=== PATIENT | female | born 1960 ===

== ENCOUNTER 2017-12-21 07:12 | Observation (INO) | payer OTHER ==
--- NOTE | 2017-12-21 07:20 | ED PDOC ---
HPI:STROKE - Time Time: 07:18 - Historian Historian: EMS - Chief Complaint Chief Complaint: Slurred speech - Onset Date: 12/21/17 Time: 05:40 Onset: Hours (1.5) - Timing Timing: Currently Symptomatic - Location Location: Speech - Radiation Radiation: None - Severity of pain Maximum severity:: Moderate Severity Current: Moderate - Exacerbated by Exacerbated by:: Nothing - Relieved by Relieved by:: Nothing - TPA Positive for Contraindication: No NIHSS Stroke Scale - How Severe is the Stroke Level of Consciousness: 0=Alert LOC to Questions: 2=Neither correct LOC to commands: 0=Obeys both correctly Best Gaze: 0=Normal Visual: 0=No visual loss Facial: 0=Normal Motor Arm - Left: 0=No drift Motor Arm - Right: 0=No drift Motor Leg - Left: 0=No drift Motor Leg - Right: 0=No drift Limb Ataxia: 0=Absent Sensory: 0=Normal Best Language: 2=Severe aphasia Dysarthia: 2=Severe, near unintelligible or worse Extinction & Inattention (Neglect): 0=Normal, no object Score: 6 NIHSS Stroke Scale 2 - How Severe is the Stroke Level of Consciousness: 0=Alert LOC to Questions: 0=Both comments correct LOC to commands: 0=Obeys both correctly Best Gaze: 0=Normal Visual: 0=No visual loss Facial: 0=Normal Motor Arm - Left: 0=No drift Motor Arm - Right: 0=No drift Motor Leg - Left: 0=No drift Motor Leg - Right: 0=No drift Limb Ataxia: 0=Absent Sensory: 0=Normal Best Language: 0=No aphasia Dysarthia: 0=Normal articulation Extinction & Inattention (Neglect): 0=Normal, no object Score: 0 rTPA Inclusion/Exclusion - Refusal of Treatment Patient Refused Treatment: No - Inclusion Criteria for Altepase Patient is 18 years or Older: Yes The Clinical Diagnosis of Ischemic Stroke That is Causing a Potentially Disabling Neurological Deficit: Yes Time of Onset is Well Established to be Less Than 270 Minute Before Treatment Would Begin: Yes Risk/Benefit Discussed With Patient/Family Member Present: Yes - Exclusion Criteria for Altepase Uncontrolled Hypertension at Time of Treatment (Systolic BP above 185 or Diastolic BP above 110 mmHg): No Past Medical History - Medical History PMH: Anxiety, Cardia Arrhythmia, Emphysema, HTN, Hyperlipidemia, Seizures, TIA - Family History Family History: States: Unknown Family Hx - Home Medications Home Medications: Ambulatory Orders Medication Instructions Recorded Albuterol HFA [Ventolin HFA 90 2 puff INH Q4 PRN 12/16/15 mcg/actuation (8 g)] Aspirin [Ecotrin] 81 mg PO DAILY 12/16/15 Atorvastatin [Lipitor] 20 mg PO HS 12/16/15 Budesonide/Formoterol Fumarate 2 puff INH BID 12/16/15 [Symbicort 80-4.5 Mcg Inhaler] Clopidogrel [Plavix] 75 mg PO DAILY 12/16/15 Escitalopram [Lexapro] 10 mg PO DAILY 12/16/15 Losartan/Hydrochlorothiazide 1 tab PO DAILY 12/16/15 [Losartan-Hctz 50-12.5 mg Tab] Naproxen 500 mg PO BID PRN 12/16/15 amLODIPine [Norvasc] 10 mg PO DAILY 12/16/15 Fenofibrate [Tricor] 145 mg PO DAILY #30 tab 12/17/15 - Allergies Allergies/Adverse Reactions: Allergies Allergy/AdvReac Type Severity Reaction Status Date / Time atorvastatin calcium Allergy ANAPHYLAXIS Verified 12/21/17 07:18 [From Lipitor] Review of Systems ROS Statement: Except As Marked, All Systems Reviewed And Found Negative Neurological: Positive for: Change in Speech Physical Exam - Reviewed Nursing Documentation Reviewed: Yes Vital Signs Reviewed: Yes - Physical Exam Appears: Positive for: Non-toxic, No Acute Distress Head Exam: Positive for: ATRAUMATIC, NORMAL INSPECTION, NORMOCEPHALIC Skin: Positive for: Normal Color, Warm, DRY Eye Exam: Positive for: EOMI, Normal appearance, PERRL ENT: Positive for: Normal ENT Inspection Neck: Positive for: Normal, Painless ROM Cardiovascular/Chest: Positive for: Regular Rate, Rhythm Respiratory: Positive for: CNT, Normal Breath Sounds Gastrointestinal/Abdominal: Positive for: Normal Exam, Soft Back: Positive for: Normal Inspection Extremity: Positive for: Normal ROM Neurologic/Psych: Positive for: Alert, Aphasia (Expressive aphasia). Negative for: Motor/Sensory Deficits - Laboratory Results Result Diagrams: 12/21/17 07:30 12/21/17 07:30 - Progress Re-evaluation Time: 08:37 Condition: Improved - Critical Care Total Time (In Min): 30 Documented Critical Care: Time excludes all time spent performint seperately billable procedures Medical Decision Making Medical Decision Making: Reeval 8:22 No expressive aphasia. NIHSS [address] Back will not give tPA at present. Family states pt stopped Keppra 5 months ago due to side effects. Dr. Lyon recommends starting Vinpay 200 mg IV load followed by 100 mg PO BID Disposition - Clinical Impression Clinical Impression: Seizure disorder - Patient ED Disposition Is Patient to be Admitted: Yes - Disposition Disposition Time: 08:37 Condition: FAIR - Pt Status Changed To: Hospital Disposition Of: Observation - POA Present On Arrival: None
[2017-12-21] MEDS ORDERED: Sodium Chloride 0.9% 1,000 ML IV SCH (07:30)
[2017-12-21 07:40] VITALS: O2SAT 100
[2017-12-21] MEDS ORDERED: Sodium Chloride 0.9% 50 ML IV ONE (07:44)
[2017-12-21] MEDS ORDERED: Iodixanol 320 MG/ML 100 ML BOTTLE IV ONE (07:44)
[2017-12-21 07:48] LABS: BASO # 0.1 K/uL (0.0-0.2); BASO % 0.6 % (0.0-2.0); EOS # 0.1 K/uL (0.0-0.7); EOS % 0.8 % (0.0-4.0); HEMOGLOBIN 13.6 g/dL (12.0-16.0); LYMPH # 2.8 K/uL (1.0-4.3); LYMPH % 26.6 % (20.0-40.0); MEAN CELL VOLUME 92.6 fl (81.0-99.0); MEAN CORPUSCULAR HGB CONC 34.5 g/dL (33.0-37.0); MEAN PLATELET VOLUME 8.4 fl (7.2-11.7); MONO # 0.6 K/uL (0.0-0.8); MONO % 5.9 % (0.0-10.0); NEUT # 6.9 K/uL (1.8-7.0); NEUT % 66.1 % (50.0-75.0); NRBC % 0.1 % (0.0-0.0); PROTHROMBIN TIME 10.7 Seconds (9.8-13.1); RBC 4.26 Mil/uL (3.80-5.20); RED CELL DISTRIBUTION WIDTH 12.7 % (11.5-14.5); WHITE BLOOD COUNT 10.4 K/uL (4.8-10.8)
[2017-12-21 07:51] LABS: PARTIAL THROMBOPLASTIN TIME 29.7 Seconds (25.6-37.1)
[2017-12-21 07:53] LABS: ALB/GLOB RATIO 1.1 (1.0-2.1); ALBUMIN 4.2 g/dL (3.5-5.0); ALT/SGPT 41 U/L (9-52); AST/SGOT 32 U/L (14-36); BLOOD UREA NITROGEN 17 mg/dl (7-17); CALCIUM 9.4 mg/dL (8.4-10.2); GFR NON-AFRICAN AMERICAN > 60; HDL CHOLESTEROL 29 MG/DL (30-70)
[2017-12-21 08:03] LABS: LDL CHOLESTEROL 67 mg/dL (0-129)
--- NOTE | 2017-12-21 08:41 | RAD ---
Date of service: 12/21/2017 HISTORY: Code Stroke COMPARISON: 2016 FINDINGS: LUNGS: No active pulmonary disease. PLEURA: No significant pleural effusion identified, no pneumothorax apparent. CARDIOVASCULAR: Normal. OSSEOUS STRUCTURES: No significant abnormalities. VISUALIZED UPPER ABDOMEN: Normal. OTHER FINDINGS: None. IMPRESSION: No active disease.
--- NOTE | 2017-12-21 08:45 | CT ---
Date of service: 12/21/2017 PROCEDURE: CT HEAD WITHOUT CONTRAST. HISTORY: code stroke COMPARISON: 12/16/2015 TECHNIQUE: Axial computed tomography images were obtained through the head/brain without intravenous contrast. Radiation dose: Total exam DLP = 851 mGy-cm. This CT exam was performed using one or more of the following dose reduction techniques: Automated exposure control, adjustment of the mA and/or kV according to patient size, and/or use of iterative reconstruction technique. FINDINGS: HEMORRHAGE: No intracranial hemorrhage. BRAIN: No mass effect or edema. No atrophy or chronic microvascular ischemic changes. VENTRICLES: Unremarkable. No hydrocephalus. CALVARIUM: Unremarkable. PARANASAL SINUSES: Unremarkable as visualized. No significant inflammatory changes. MASTOID AIR CELLS: Mild right mastoid air cell disease. Left mastoid air cells are well aerated. OTHER FINDINGS: Retro-orbital regions are unremarkable. No appreciable cerebellopontine angle mass or sellar mass is noted. IMPRESSION: Unremarkable CT scan of the brain without contrast. No interval change from prior study. This agrees with preliminary report provided by the on-call radiologist. Mild right mastoid air cell disease.
[2017-12-21] MEDS ORDERED: Lacosamide 200mg/20ml 200 MG in Sodium Chloride 0.9% 100 ML IVPB STA (08:53)
[2017-12-21] MEDS ORDERED: Lacosamide 200mg/20ml 200 MG in Sodium Chloride 0.9% 100 ML IVPB SCH (09:00)
--- NOTE | 2017-12-21 09:10 | CARD ---
APPROVED REPORT Date of service: 12/21/2017 EKG Measurement Heart [id number] <Conclusion> Normal sinus rhythm Normal ECG
[2017-12-21 10:13] VITALS: TEMP 98.2
[2017-12-21] MEDS: Lacosamide 100 MG Tab PO SCH ×2 (11:06→17:37)
[2017-12-21] MEDS ORDERED: Albuterol HFA 90 mcg/actuation (8 g) INH PRN (11:45)
[2017-12-21 13:35] VITALS: RESP 19
--- NOTE | 2017-12-21 14:07 | CT ---
Date of service: 12/21/2017 PROCEDURE: CT Angiography of the Brain. HISTORY: CVA NIHSS 6 Expressive aphasia COMPARISON: Noncontrast CT scan same date. TECHNIQUE: CT angiography of the intracranial arteries was performed. Coronal and sagittal maximum intensity projection reformated images were generated. This CT exam was performed using one or more of the following dose reduction techniques: Automated exposure control, adjustment of the mA and/or kV according to patient size, and/or use of iterative reconstruction technique. FINDINGS: INTERNAL CEREBRAL ARTERIES: Unremarkable. The skull base, petrous, cavernous and supraclinoid segments are bilaterally widely patent. ANTERIOR CEREBRAL ARTERIES: Unremarkable. A1 and A2 segments are widely patent. Smaller distal branches unremarkable, as visualized. MIDDLE CEREBRAL ARTERIES: Unremarkable. M1 and M2 segments are widely patent. Perisylvian branches grossly symmetric. POSTERIOR CIRCULATION: Basilar Artery: Unremarkable. Distal Vertebral Arteries: Unremarkable. Visualized sinuses are clear. Posterior Cerebral Arteries: Unremarkable. Posterior Inferior Cerebellar Arteries: Unremarkable. ANEURYSM/ VASCULAR MALFORMATIONS: None. OTHER FINDINGS: There is congenital variation of the posterior circulation. Visualized veins and venous sinuses are patent. Orbital apices and ophthalmic arteries appear grossly patent. Bony structures are unremarkable. No vascular anomaly is seen elsewhere. IMPRESSION: Unremarkable CT angiography of the brain. This agrees with preliminary report provided by the on-call radiologist. Preliminary report was called in to the referring physician utilizing stroke protocol.
[2017-12-21] MEDS ORDERED: Naproxen 500 MG TAB PO PRN (16:05)
--- NOTE | 2017-12-21 17:48 | CP.PCM.CON ---
History of Present Illness - History of Present Illness History of Present Illness: Neurology Consultation Note: Mrs. Sommers is a 57-year-old woman with a past medical history of Epilepsy, who was taking Keppra, but stopped taking it 4 months ago due to side-effects, and presented yesterday with an episode of weakness, confusion and aphasia that lasted for nearly an hour before resolving. This has happened to her before in the context of a seizure, per family. She is now back to baseline after being loaded with Vimpat 200 mg IV and continued with 100 mg Q12 PO. She has no complaints. Review of Systems - Review of Systems All systems: reviewed and no additional remarkable complaints except Past Patient History - Past Medical History & Family History Past Medical History?: Yes - Past Social History Smoking Status: Former Smoker - CARDIAC Hx Cardia Arrhythmia: Yes Hx Hypertension: Yes - PULMONARY Hx Emphysema: Yes - NEUROLOGICAL Hx Seizures: Yes Hx Transient Ischemic Attacks (TIA): Yes - MUSCULOSKELETAL/RHEUMATOLOGICAL Hx Falls: No - PSYCHIATRIC Hx Anxiety: Yes - SURGICAL HISTORY Hx Surgeries: Yes Hx Hysterectomy: Yes Hx Tubal Ligation: Yes Other/Comment: ovarian cyst removed,hemorrhoidectomy, icm device implanted at 01-13-2016 [facility] [facility] - ANESTHESIA Hx Anesthesia: Yes Hx Anesthesia Reactions: No Meds Home Medications: Home Medication List Medication Instructions Recorded Confirmed Type Lacosamide [Vimpat] 100 mg PO BID #60 tab 12/21/17 Rx Allergies/Adverse Reactions: Allergies Allergy/AdvReac Type Severity Reaction Status Date / Time atorvastatin calcium Allergy ANAPHYLAXIS Verified 12/21/17 07:18 [From Lipitor] - Medications Medications: Current Medications Albuterol (Ventolin Hfa 90 Mcg/Actuation (8 G)) 2 puff INH Q4 PRN PRN Reason: Wheezing Amlodipine Besylate (Norvasc) 10 mg PO DAILY PATRICIA Aspirin (Ecotrin) 81 mg PO DAILY PATRICIA Atorvastatin Calcium (Lipitor) 20 mg PO HS PATRICIA Clopidogrel Bisulfate (Plavix) 75 mg PO DAILY PATRICIA Escitalopram Oxalate (Lexapro) 10 mg PO DAILY PATRICIA Fenofibrate (Tricor) 145 mg PO DAILY PATRICIA HCTZ/Losartan Potassium (Hyzaar 12.5 Mg-50 Mg) 1 tab PO DAILY PATRICIA Home Med (Budesonide/Formoterol Fumarate [Symbicort 80-4.5 Mcg Inhaler]) 2 puff INH BID PATRICIA Sodium Chloride (Sodium Chloride 0.9%) 1,000 mls @ 100 mls/hr IV .Q10H [facility] Last Admin: 12/21/17 08:05 Dose: 100 mls/hr Lacosamide (Vimpat) 100 mg PO BID [facility] Last Admin: 12/21/17 17:37 Dose: 100 mg Naproxen (Naproxen) 500 mg PO BID PRN PRN Reason: Pain, moderate (4-7) Physical Exam - Constitutional Appears: Well - Head Exam Head Exam: ATRAUMATIC, NORMAL INSPECTION, NORMOCEPHALIC - Eye Exam Eye Exam: EOMI, Normal appearance, PERRL - ENT Exam ENT Exam: Mucous Membranes Moist, Normal Exam - Neck Exam Neck exam: Positive for: Normal Inspection - Respiratory Exam Respiratory Exam: Clear to Auscultation Bilateral, NORMAL BREATHING PATTERN - Cardiovascular Exam Cardiovascular Exam: REGULAR RHYTHM - GI/Abdominal Exam GI & Abdominal Exam: Normal Bowel Sounds, Soft. absent: Tenderness - Rectal Exam Rectal Exam: Deferred - Neurological Exam Neurological exam: Alert, CN II-XII Intact, Normal Gait, Oriented x3, Reflexes Normal - Psychiatric Exam Psychiatric exam: Normal Affect, Normal Mood - Skin Skin Exam: Dry, Intact, Normal Color, Warm Results - Vital Signs Recent Vital Signs: Last Vital Signs Temp 98.2 F 12/21/17 10:12 Pulse 77 12/21/17 13:35 Resp 19 12/21/17 13:35 BP 120/72 12/21/17 13:35 Pulse Ox 100 12/21/17 13:35 - Labs Result Diagrams: 12/21/17 07:30 12/21/17 07:30 Labs: Laboratory Results - last 24 hr 12/21/17 12/21/17 12/21/17 07:30 07:30 07:30 WBC 10.4 D RBC 4.26 Hgb 13.6 Hct 39.5 MCV 92.6 MCH 32.0 H MCHC 34.5 RDW 12.7 Plt Count 308 MPV 8.4 Neut % (Auto) 66.1 Lymph % (Auto) 26.6 [place] % (Auto) 5.9 Eos % (Auto) 0.8 Baso % (Auto) 0.6 Neut # (Auto) 6.9 Lymph # (Auto) 2.8 [place] # (Auto) 0.6 Eos # (Auto) 0.1 Baso # (Auto) 0.1 PT 10.7 INR 1.0 APTT 29.7 Sodium 140 Potassium 4.2 Chloride 107 Carbon Dioxide 22 Anion Gap 15 BUN 17 Creatinine 0.7 Est GFR ( Amer) > 60 Est GFR (Non-Af Amer) > 60 Random Glucose 138 H Calcium 9.4 Total Bilirubin 0.3 AST 32 ALT 41 Alkaline Phosphatase 117 Troponin I < 0.0120 Total Protein 8.2 Albumin 4.2 Globulin 4.0 H Albumin/Globulin Ratio 1.1 Triglycerides 1262 H Cholesterol 260 H LDL Cholesterol Direct 67 HDL Cholesterol 29 L Blood Type Antibody Screen BBK History Checked 12/21/17 07:30 WBC RBC Hgb Hct MCV MCH MCHC RDW Plt Count MPV Neut % (Auto) Lymph % (Auto) [place] % (Auto) Eos % (Auto) Baso % (Auto) Neut # (Auto) Lymph # (Auto) [place] # (Auto) Eos # (Auto) Baso # (Auto) PT INR APTT Sodium Potassium Chloride Carbon Dioxide Anion Gap BUN Creatinine Est GFR ( Amer) Est GFR (Non-Af Amer) Random Glucose Calcium Total Bilirubin AST ALT Alkaline Phosphatase Troponin I Total Protein Albumin Globulin Albumin/Globulin Ratio Triglycerides Cholesterol LDL Cholesterol Direct HDL Cholesterol Blood Type O POSITIVE Antibody Screen Negative BBK History Checked Patient has bt Assessment & Plan (1) Seizure disorder Assessment and Plan: Continue Vimpat 100 mg BID and obtain MRI of the brain without contrast as well as an EEG as an outpatient. I provided the patient with my office information to schedule a follow-up visit with me in the office. Thank you. Status: Acute
[2017-12-21 18:11] VITALS: BP 134/69; PULSE 78
--- NOTE | 2017-12-21 20:29 | CP.PCM.HP ---
History of Present Illness - History of Present Illness History of Present Illness: pt admitted for lethargy, dysphagia, weakness. was code stroke by er and dr salazar consulted. imaging reviewed. pt came outot lethargic state and admitted to ?? seizure activity and that she self dc'd keppra 5 months prior. no neuro d eficits at time of eval. pt was seen adn cleared for dc by dr salazar-neuro after pt received loading dose of antiepileptic in er. bw noted/imaging reviewed. neuro consult apriciated Present on Admission - Present on Admission Any Indicators Present on Admission: No Review of Systems - Neurological Neurological: As Per HPI, Convulsions, Weakness Past Patient History - Past Medical History & Family History Past Medical History?: Yes - Past Social History Smoking Status: Former Smoker - CARDIAC Hx Cardia Arrhythmia: Yes Hx Hypertension: Yes - PULMONARY Hx Emphysema: Yes - NEUROLOGICAL Hx Seizures: Yes Hx Transient Ischemic Attacks (TIA): Yes - MUSCULOSKELETAL/RHEUMATOLOGICAL Hx Falls: No - PSYCHIATRIC Hx Anxiety: Yes - SURGICAL HISTORY Hx Surgeries: Yes Hx Hysterectomy: Yes Hx Tubal Ligation: Yes Other/Comment: ovarian cyst removed,hemorrhoidectomy, icm device implanted at 01-13-2016 [employer] - ANESTHESIA Hx Anesthesia: Yes Hx Anesthesia Reactions: No Meds Home Medications: Home Medication List Medication Instructions Recorded Confirmed Type Lacosamide [Vimpat] 100 mg PO BID #60 tab 12/21/17 Rx Allergies/Adverse Reactions: Allergies Allergy/AdvReac Type Severity Reaction Status Date / Time atorvastatin calcium Allergy ANAPHYLAXIS Verified 12/21/17 07:18 [From Lipitor] Physical Exam - Constitutional Appears: Well, Non-toxic, No Acute Distress - Head Exam Head Exam: ATRAUMATIC, NORMAL INSPECTION, NORMOCEPHALIC - Eye Exam Eye Exam: EOMI, Normal appearance, PERRL Pupil Exam: NORMAL ACCOMODATION, PERRL - ENT Exam ENT Exam: Mucous Membranes Moist, Normal Exam - Neck Exam Neck exam: Positive for: Normal Inspection - Respiratory Exam Respiratory Exam: Clear to Auscultation Bilateral, NORMAL BREATHING PATTERN - Cardiovascular Exam Cardiovascular Exam: REGULAR RHYTHM, RRR, +S1, +S2 - GI/Abdominal Exam GI & Abdominal Exam: Normal Bowel Sounds, Soft. absent: Tenderness - Extremities Exam Extremities exam: Positive for: full ROM, normal capillary refill, normal inspection, pedal pulses present - Back Exam Back exam: FULL ROM, NORMAL INSPECTION - Neurological Exam Neurological exam: Alert, CN II-XII Intact, Normal Gait, Oriented x3, Reflexes Normal - Psychiatric Exam Psychiatric exam: Normal Affect, Normal Mood - Skin Skin Exam: Dry, Intact, Normal Color, Warm Results - Vital Signs Recent Vital Signs: Last Vital Signs Temp 98.2 F 12/21/17 10:12 Pulse 77 12/21/17 13:35 Resp 19 12/21/17 13:35 BP 120/72 12/21/17 13:35 Pulse Ox 100 12/21/17 13:35 - Labs Result Diagrams: 12/21/17 07:30 12/21/17 07:30 Labs: Laboratory Results - last 24 hr 12/21/17 12/21/17 12/21/17 07:30 07:30 07:30 WBC 10.4 D RBC 4.26 Hgb 13.6 Hct 39.5 MCV 92.6 MCH 32.0 H MCHC 34.5 RDW 12.7 Plt Count 308 MPV 8.4 Neut % (Auto) 66.1 Lymph % (Auto) 26.6 [place] % (Auto) 5.9 Eos % (Auto) 0.8 Baso % (Auto) 0.6 Neut # (Auto) 6.9 Lymph # (Auto) 2.8 [place] # (Auto) 0.6 Eos # (Auto) 0.1 Baso # (Auto) 0.1 PT 10.7 INR 1.0 APTT 29.7 Sodium 140 Potassium 4.2 Chloride 107 Carbon Dioxide 22 Anion Gap 15 BUN 17 Creatinine 0.7 Est GFR ( Amer) > 60 Est GFR (Non-Af Amer) > 60 Random Glucose 138 H Calcium 9.4 Total Bilirubin 0.3 AST 32 ALT 41 Alkaline Phosphatase 117 Troponin I < 0.0120 Total Protein 8.2 Albumin 4.2 Globulin 4.0 H Albumin/Globulin Ratio 1.1 Triglycerides 1262 H Cholesterol 260 H LDL Cholesterol Direct 67 HDL Cholesterol 29 L Blood Type Antibody Screen BBK History Checked 12/21/17 07:30 WBC RBC Hgb Hct MCV MCH MCHC RDW Plt Count MPV Neut % (Auto) Lymph % (Auto) [place] % (Auto) Eos % (Auto) Baso % (Auto) Neut # (Auto) Lymph # (Auto) [place] # (Auto) Eos # (Auto) Baso # (Auto) PT INR APTT Sodium Potassium Chloride Carbon Dioxide Anion Gap BUN Creatinine Est GFR ( Amer) Est GFR (Non-Af Amer) Random Glucose Calcium Total Bilirubin AST ALT Alkaline Phosphatase Troponin I Total Protein Albumin Globulin Albumin/Globulin Ratio Triglycerides Cholesterol LDL Cholesterol Direct HDL Cholesterol Blood Type O POSITIVE Antibody Screen Negative BBK History Checked Patient has bt Assessment & Plan (1) Seizure disorder Assessment and Plan: loaded w/ vimpat neuro ct head and cta head outpt mri/eeg as per neuro cleared for dc by neuro Status: Acute (2) DVT prophylaxis Assessment and Plan: scd nad ae hose ambulation Status: Acute (3) Hypertriglyceridemia Assessment and Plan: repeat outpt. ?? not fasting number Status: Acute Decision To Admit - Pt Status Changed To: Hospital Disposition Of: Observation - . Bed Request Type: Telemetry Admitting Physician: Jose Lewis
[2017-12-21] MEDS ORDERED: Fluticasone-Salmeterol 100-50mcg Diskus INH SCH (21:00)
[2017-12-22] MEDS ORDERED: HCTZ/Losartan 12.5/50 Tab PO SCH (09:00)
== END 2017-12-21 18:11 | disposition home or self-care (01) ==
LOC: H.ER 07:12 → H.ERHOLD 08:38
PROVIDERS: ADMIT Family Medicine; ATTEND Family Medicine
DX: G40.909 Epilepsy, unspecified, not intractable, without status epilepticus (principal); I10 Essential (primary) hypertension; J43.9 Emphysema, unspecified; R13.10 Dysphagia, unspecified; R47.01 Aphasia; Z79.02 Long term (current) use of antithrombotics/antiplatelets; Z79.82 Long term (current) use of aspirin; Z86.73 Personal history of transient ischemic attack (TIA), and cerebral infarction without residual deficits; Z87.891 Personal history of nicotine dependence; Z90.710 Acquired absence of both cervix and uterus; F41.9 Anxiety disorder, unspecified; Z79.899 Other long term (current) drug therapy; E78.1 Pure hyperglyceridemia; E78.5 Hyperlipidemia, unspecified
CPT/HCPCS: 70450; 70496; 71045; 80053; 80061; 83036; 84484; 85025; 85610; 85730; 86850; 86900; 92610; 93005; 96365; 96374; 99285; G0378; G8996; G8997; G8998; J2060; J7030; Q9967